=== PATIENT | male | born 1985 | race African-American/Black ===

== ENCOUNTER 2016-04-15 02:33 | Emergency (ER) | payer MEDICAID ==
[~2016-04-15] VITALS: Ht 167.6 cm; Wt 104.0 kg
[~2016-04-15 02:33] MED LIST: AMOX875T PO
[2016-04-15 02:36] VITALS: BP 135/71; PULSE 98; RESP 14; TEMP 98.4; O2SAT 95
--- NOTE | 2016-04-15 04:06 | PD ---
HPI Chief Complaint: ENT Complaint Time Seen by Provider: 04:04 Travel History International Travel<30 days: No Contact w/Intl Traveler<30days: No Traveled to known affect area: No History of Present Illness HPI Patient comes in complaining of sore throat ongoing for 3-4 days. Pain is sharp stabbing like in nature and radiates to his left ear. Pain is worse with swallowing. Patient is doing anything for this. Denies any known fevers, nausea, vomiting, neck pain, shortness breath, chest pain, headache, numbness or tingling anywhere, abdominal pain, diarrhea, or being around anyone else with similar. PFSH Past Medical History Hx Anticoagulant Therapy: No Cardiovascular Problems: Yes (MURMUR) Chemotherapy: No Cerebrovascular Accident: No Diabetes: No Respiratory: No Past Surgical History Hysterectomy: No Social History Alcohol Use: No Tobacco Use: No Substance Use: No Allergies-Medications (Allergen,Severity, Reaction): Coded Allergies: No Known Allergies (Unverified , 04/15/16) Reported Meds & Prescriptions Reported Meds & Active Scripts Active Amoxicillin 875 Mg Tab 875 Mg PO BID 10 Days Review of Systems Except as stated in HPI: all other systems reviewed are Neg Physical Exam Narrative GENERAL: Well-developed, overly nourished, in no acute distress, and non-ill appearing. SKIN: Warm and dry. HEAD: Atraumatic. Normocephalic. EYES: Pupils equal and round. EOMI. No scleral icterus. No injection or drainage. ENT: No nasal bleeding or discharge. Mucous membranes pink and moist. Left tympanic membrane mildly erythematous. Posterior pharynx erythematous scant exudate. Uvula is midline. Patient speaking in full sentences and swallowing saliva. There is no tenderness to sinuses to palpation. NECK: Trachea midline. No cervical lymphadenopathy. Supple. No nuclear rigidity. RESPIRATORY: No accessory muscle use. No respiratory distress. MUSCULOSKELETAL: No obvious deformities. No clubbing. No cyanosis. No edema. Full range of motion. NEUROLOGICAL: Awake and alert. No obvious cranial nerve deficits. Motor grossly within normal limits. Normal speech. PSYCHIATRIC: Appropriate mood and affect; insight and judgment normal. Data Data Last Documented VS Vital Signs Date Time Temp Pulse Resp B/P Pulse Ox O2 Delivery O2 Flow Rate FiO2 04/15/16 02:36 98.4 98 14 135/71 95 Room Air Orders Amoxicillin (Trimox) (3/11/17 04:15) [facility] Medical Decision Making Medical Screen Exam Complete: Yes Emergency Medical Condition: Yes Differential Diagnosis Strep pharyngitis, viral pharyngitis, otitis media, otitis externa, retropharyngeal abscess, peritonsillar abscess, other Narrative Course Patient looks great, non-ill appearing. The patient is tolerating fluids and is well hydrated. Appears pharyngitis possibly Strep. No clinical evidence by history or evaluation to suspect meningitis and/or sepsis. There was no evidence to suggest peritonsillar abscess or retropharyngeal abscess. I discussed with the patient, diagnosis, plan of care and to follow up with the patients primary physician or ENT. The patient was given antibiotics. The patient was instructed to return if the worsens in anyway, especially if not tolerating fluids, increased pain or swelling, difficulty swallowing or breathing, or as needed. The patient agreed with plan. Patient in no obvious distress upon re-evaluation. Patient was asked if they wanted to speak to my attending, which the patient did not wish to do at this time. Any questions/concerns in reference to patient diagnosis/condition discussed and clarified prior to patient's discharge. Reinforced sheer importance of close follow up with patient's primary physician or primary care clinic and ENT. Instructed patient to return to ED immediately, if symptoms return/worsen. Pt showed understanding of above instructions. Further instructions and recommendations were detailed in discharge paperwork. Pt ambulated without difficulty out of ED at discharge. Diagnosis Primary Impression: Pharyngitis Qualified Code: J02.9 - Pharyngitis, unspecified etiology Referrals: Ear / Nose / Throat Specialist Primary Care Physician Patient Instructions: General Instructions, Pharyngitis (ED) Additional Instructions: Follow-up with your primary care physician and/or ENT this week for reevaluation. Take all medication as prescribed. Use [id number] Tylenol and/or ibuprofen as needed for pain and/or fevers. Return to the emergency department if symptoms get worse. Med/Other Pt SpecificInfo: Prescription(s) given Scripts Amoxicillin 875 Mg Chi942 Mg PO BID 10 Days Ref 0 Prov:Mian Garcia MD 04/15/16 Disposition: 01 DISCHARGE HOME Condition: Stable Dewey Mcallister Apr 15, 2016 04:06
[2016-04-15] MEDS ORDERED: AMOX875T PO (04:14)
[2016-04-15] MEDS ORDERED: AMOXICILLIN 875 MG TAB PO ONE (04:15)
== END 2016-04-15 04:32 | disposition home or self-care (01) ==
LOC: NEPB 02:33
DX: J02.9 Acute pharyngitis, unspecified (principal)
CPT/HCPCS: 99282